=== PATIENT | male | born 1970 | race Caucasian/White ===

== ENCOUNTER 2018-11-09 20:28 | Inpatient (IN) | payer OTHER ==
[~2018-11-09] VITALS: Ht 165.1 cm; Wt 83.9 kg
[2018-11-09] MEDS ORDERED: ACETAMINOPHEN 500MG TABLET PO ONE (21:00)
[2018-11-09 21:38] LABS: BASOPHILS % 0.2 % (0.0-2.0); CHLORIDE 100 mEq/L (98-107); EOSINOPHILS % 0.7 % (0.0-5.0); HEMATOCRIT. 42.2 % (42.0-52.0); HEMOGLOBIN. 14.4 g/dL (14.0-18.0); LYMPHOCYTES % 11.6 % (20.0-50.0); MEAN CORPUSCULAR HEMOGLOBIN 29.3 pg (28.0-32.0); MEAN CORPUSCULAR VOLUME 85.8 fL (80.0-94.0); MEAN PLATELET VOLUME 9.1 fl (7.4-10.4); MONOCYTES % 5.9 % (2.0-8.0); NEUTROPHILS % 81.6 % (40.0-76.0); PLATELET 245 x1000/uL (130-400); RED BLOOD CELL COUNT 4.91 mill/uL (4.7-6.1)
[2018-11-09] MEDS ORDERED: HYDRALAZINE HCL 25MG TABLET PO ONE (22:00)
[2018-11-09] MEDS ORDERED: KCL 10MEQ/50ML PREMIX 50 ML IV ONE ×3 (22:30)
[2018-11-09] MEDS ORDERED: POTASSIUM CHLORIDE 20MEQ TABLET SR PO ONE (22:30)
[2018-11-09] MEDS ORDERED: ASPIRIN 81MG TABLET PO ONE (23:00)
[2018-11-10 03:00] VITALS: BP 143/83
[2018-11-10 04:00] VITALS: BP 143/83
[2018-11-10] MEDS ORDERED: ATOR40TA70 PO (04:32)
[2018-11-10] MEDS ORDERED: LISI-649 PO (04:32)
[2018-11-10] MEDS ORDERED: AMLO10TA80 PO (04:32)
[2018-11-10] MEDS ORDERED: METF-815 PO (04:32)
[2018-11-10 04:54] VITALS: BP 140/80
[2018-11-10] MEDS ORDERED: DEXTROSE 50% WATER 50ML SYRINGE IV PRN ×2 (05:30→06:00)
[2018-11-10] MEDS ORDERED: MORPHINE SULFATE 10MG/5ML ORAL SOLN UDC PO PRN (05:30)
[2018-11-10] MEDS ORDERED: DOCUSATE SODIUM 100MG CAPSULE PO PRN (05:30)
[2018-11-10] MEDS ORDERED: CLONIDINE 0.1MG TABLET PO PRN (05:30)
[2018-11-10] MEDS ORDERED: NA PHOS,M-B/NA PHOS,DI-BA ENEMA 118ML PR PRN (05:30)
[2018-11-10] MEDS ORDERED: IPRATROPIUM/ALBUTEROL 0.5-3(2.5)MG/3ML NEB INH PRN (05:30)
[2018-11-10] MEDS ORDERED: ACETAMINOPHEN 325MG TABLET PO PRN (05:30)
[2018-11-10] MEDS ORDERED: HYDROCODONE/ACETAMINOPHEN 5/325MG TABLET PO PRN (05:30)
[2018-11-10] MEDS ORDERED: GUAIFENESIN 200MG/10ML SUGAR FREE UDC PO PRN (05:30)
[2018-11-10] MEDS ORDERED: DIPHENHYDRAMINE 50MG/ML VIAL IV PRN (05:30)
[2018-11-10] MEDS ORDERED: MAGNESIUM/ALUMINUM HYDROXIDE/SIMETHICONE 30ML UDC PO PRN (05:30)
[2018-11-10] MEDS ORDERED: LORAZEPAM 2MG/ML CPJ IV PRN (05:30)
[2018-11-10] MEDS ORDERED: ONDANSETRON HCL 4MG/2ML INJ IV PRN (05:30)
[2018-11-10] MEDS: SODIUM CHLORIDE 0.9% INJ 3ML FLUSH IVF SCH ×2 (06:04→14:00)
[2018-11-10] MEDS: BLOOD SUGAR DIAGNOSTIC STRIP TEST SCH ×3 (06:51→21:08)
[2018-11-10] MEDS ORDERED: BLOOD SUGAR DIAGNOSTIC STRIP TEST SCH (07:40)
[2018-11-10] MEDS ORDERED: INSULIN LISPRO 100 UNITS/ML SUBCUT SCH (08:10)
[2018-11-10] MEDS: INSULIN LISPRO 100 UNITS/ML SUBCUT SCH ×3 (08:10→21:00)
[2018-11-10 12:00] VITALS: BP 153/94
[2018-11-10] MEDS: ENOXAPARIN 40MG/0.4ML SYR SUBCUT SCH (12:01)
[2018-11-10 13:07] LABS: CHLORIDE 102 mEq/L (98-107)
[2018-11-10] MEDS: SODIUM CHLORIDE 0.9% 1,000 ML IV SCH (13:08)
[2018-11-10 13:14] LABS: LDL CHOLESTEROL 96 mg/dL (5-100)
[2018-11-10 13:15] LABS: CREATINE KINASE 135 IU/L (39-308)
[2018-11-10 13:18] LABS: CREATINE KINASE MB FRACTION 1.1 ng/mL (0.5-3.6)
[2018-11-10 16:00] VITALS: BP 126/83
[2018-11-10 20:00] VITALS: BP 119/71
[2018-11-10 22:13] LABS: CREATINE KINASE 110 IU/L (39-308)
[2018-11-11] VITALS: BP 119/74
[2018-11-11] MEDS: SODIUM CHLORIDE 0.9% INJ 3ML FLUSH IVF SCH ×2 (01:54→22:00)
[2018-11-11] MEDS: SODIUM CHLORIDE 0.9% 1,000 ML IV SCH ×2 (01:55→13:10)
[2018-11-11 04:00] VITALS: BP 120/76
[2018-11-11 06:33] LABS: BASOPHILS % 0.6 % (0.0-2.0); EOSINOPHILS % 2.2 % (0.0-5.0); LYMPHOCYTES % 34.2 % (20.0-50.0); MEAN CORPUSCULAR HEMOGLOBIN 29.8 pg (28.0-32.0); MEAN CORPUSCULAR VOLUME 87.4 fL (80.0-94.0); MONOCYTES % 7.7 % (2.0-8.0); NEUTROPHILS % 55.3 % (40.0-76.0); PLATELET 224 x1000/uL (130-400); RED BLOOD CELL COUNT 4.69 mill/uL (4.7-6.1); RED CELL DISTRIBUTION WIDTH 13.3 % (11.6-14.6)
[2018-11-11 06:48] LABS: CHLORIDE 107 mEq/L (98-107)
[2018-11-11 07:00] LABS: T4 FREE 1.07 ng/dL (0.76-1.46)
[2018-11-11 07:01] LABS: HDL CHOLESTEROL 33 mg/dL (40-59)
[2018-11-11 07:02] LABS: LDL CHOLESTEROL 78 mg/dL (5-100)
[2018-11-11 08:00] VITALS: BP 134/84
[2018-11-11] MEDS: BLOOD SUGAR DIAGNOSTIC STRIP TEST SCH ×4 (08:07→20:59)
[2018-11-11] MEDS: INSULIN LISPRO 100 UNITS/ML SUBCUT SCH ×4 (08:07→21:00)
[2018-11-11] MEDS: ENOXAPARIN 40MG/0.4ML SYR SUBCUT SCH (08:47)
[2018-11-11 11:50] VITALS: BP 141/86
[2018-11-11] MEDS ORDERED: CLONIDINE 0.3MG TABLET PO PRN (13:00)
[2018-11-11] MEDS ORDERED: NON FORMULARY PATIENT HOME MED XX SCH (13:00)
[2018-11-11] MEDS: AMLODIPINE 10MG TABLET PO SCH (13:00)
[2018-11-11 16:00] VITALS: BP 120/76
[2018-11-11] MEDS: HYDROCHLOROTHIAZIDE 25MG TABLET PO SCH (18:34)
[2018-11-11] MEDS: LISINOPRIL 20MG TABLET PO SCH (18:35)
[2018-11-11 20:00] VITALS: BP 159/93
[2018-11-11] MEDS ORDERED: ATORVASTATIN CALCIUM 40MG TABLET PO SCH (21:00)
[2018-11-12] VITALS: BP 141/88
[2018-11-12] MEDS: SODIUM CHLORIDE 0.9% 1,000 ML IV SCH (02:24)
[2018-11-12 04:00] VITALS: BP 127/73
[2018-11-12] MEDS: BLOOD SUGAR DIAGNOSTIC STRIP TEST SCH (05:58)
[2018-11-12] MEDS: SODIUM CHLORIDE 0.9% INJ 3ML FLUSH IVF SCH (05:58)
[2018-11-12 08:00] VITALS: BP 128/79
[2018-11-12] MEDS ORDERED: METFORMIN HCL 500MG TABLET PO SCH (08:10)
[2018-11-12] MEDS: INSULIN LISPRO 100 UNITS/ML SUBCUT SCH (08:10)
[2018-11-12] MEDS: HYDROCHLOROTHIAZIDE 25MG TABLET PO SCH (08:53)
[2018-11-12] MEDS: LISINOPRIL 20MG TABLET PO SCH (08:53)
[2018-11-12] MEDS: AMLODIPINE 10MG TABLET PO SCH (08:54)
[2018-11-12] MEDS: ENOXAPARIN 40MG/0.4ML SYR SUBCUT SCH (08:55)
[2018-11-12 10:52] VITALS: BP 128/79
== END 2018-11-12 12:17 | disposition home or self-care (01) | DRG 69 ==
LOC: ER 20:28 → 7WST 22:52 → EDBEDREQ 22:56 → EDBEDREQTM 22:56 → ENRESERV 11-10 01:16
PROVIDERS: ADMIT Internal Medicine; ATTEND Internal Medicine
DX: G45.9 Transient cerebral ischemic attack, unspecified (principal); G90.8 Other disorders of autonomic nervous system; E87.6 Hypokalemia; E78.5 Hyperlipidemia, unspecified; E11.9 Type 2 diabetes mellitus without complications; I11.9 Hypertensive heart disease without heart failure; I83.93 Asymptomatic varicose veins of bilateral lower extremities; Z79.899 Other long term (current) drug therapy; Z79.84 Long term (current) use of oral hypoglycemic drugs
CPT/HCPCS: 36415; 71045; 78582; 80048; 80061; 82550; 82553; 82962; 83036; 83721; 83735; 83880; 84439; 84443; 84484; 85379; 93005; 93306; 93880; 93970; 96365; 97161; 97165; 99285; A9558; J1650; J3480; J7030

== ENCOUNTER 2021-05-09 17:23 | Emergency (ER) | payer OTHER ==
[~2021-05-09] VITALS: Ht 167.6 cm; Wt 87.0 kg
[~2021-05-09 17:23] MED LIST: AMLO10TA80 PO; ATOR40TA70 PO; LISI-649 PO; METF-873 PO
[2021-05-09] MEDS ORDERED: IBUPROFEN 600MG TABLET PO STA (17:49)
[2021-05-09] MEDS ORDERED: SODIUM CHLORIDE 0.9% 1,000 ML IV ONE ×2 (18:00→19:30)
[2021-05-09 18:01] LABS: BASOPHILS % 0.6 % (0.0-2.0); EOSINOPHILS % 1.3 % (0.0-5.0); HEMATOCRIT. 46.9 % (42.0-52.0); HEMOGLOBIN. 16.3 g/dL (14.0-18.0); LYMPHOCYTES % 31.3 % (20.0-50.0); MEAN CORPUSCULAR HEMOGLOBIN 29.5 pg (28.0-32.0); MEAN CORPUSCULAR VOLUME 85.1 fL (80.0-94.0); MEAN PLATELET VOLUME 9.6 fl (7.4-10.4); MONOCYTES % 7.4 % (2.0-8.0); NEUTROPHILS % 59.4 % (40.0-76.0); PLATELET 216 x1000/uL (130-400); RED BLOOD CELL COUNT 5.52 mill/uL (4.7-6.1); RED CELL DISTRIBUTION WIDTH 13.2 % (11.6-14.6)
[2021-05-09 18:07] LABS: CHLORIDE 101 mEq/L (98-107)
[2021-05-09] MEDS ORDERED: POTASSIUM CHLORIDE 20MEQ TABLET SR PO ONE (18:45)
[2021-05-09 19:14] LABS: CLARITY URINE CLEAR (CLEAR); COLOR URINE YELLOW (YELLOW); KETONES URINE TRACE (NEGATIVE); LEUKOCYTE ESTERASE URINE NEGATIVE (NEGATIVE); NITRITE URINE NEGATIVE (NEGATIVE); OCCULT BLOOD URINE NEGATIVE (NEGATIVE); PROTEIN URINE NEGATIVE (NEGATIVE); SPECIFIC GRAVITY URINE 1.033 (1.005-1.030); UROBILINOGEN URINE 0.2 E.U./dL (0.2-1.0)
[2021-05-09] MEDS ORDERED: METF-416 MT (20:33)
[2021-05-09 21:18] VITALS: BP 168/84
== END 2021-05-09 21:18 | disposition home or self-care (01) ==
LOC: ER 17:23
DX: E11.65 Type 2 diabetes mellitus with hyperglycemia (principal); M79.622 Pain in left upper arm; E86.0 Dehydration; I10 Essential (primary) hypertension; Z79.84 Long term (current) use of oral hypoglycemic drugs; Z79.899 Other long term (current) drug therapy
CPT/HCPCS: 36415; 80053; 81003; 85025; 96360; 99283; J7030